=== PATIENT | male | born 1960 | race Caucasian/White ===

== ENCOUNTER 2019-02-09 19:10 | Emergency (ER) | payer MEDICARE, OTHER ==
[~2019-02-09] VITALS: Ht 185.4 cm; Wt 115.2 kg
[2019-02-09 19:54] LABS: BASO # 0.1 x10^3/uL (0.0-0.2); BASO % 1 % (0-3); EOS # 0.1 x10^3/uL (0.0-0.7); EOS % 2 % (0-3); HEMATOCRIT 44.2 % (39.0-53.0); HEMOGLOBIN 14.9 g/dL (13.0-17.5); LYMPH # 1.4 x10^3/uL (1.0-4.8); LYMPH % 17 % (24-48); MEAN CORPUSCULAR HEMOGLOBIN 30 pg (25-35); MEAN CORPUSCULAR HGB CONC 34 g/dL (31-37); MEAN CORPUSCULAR VOLUME 88 fL (79-100); MONO # 0.7 x10^3/uL (0.0-1.1); MONO % 9 % (0-9); NEUT # 5.9 x10^3uL (1.8-7.7); NEUT % 72 % (31-73); PLATELET COUNT 206 x10^3/uL (140-400); RED BLOOD COUNT 5.04 x10^6/uL (4.30-5.70); RED CELL DISTRIBUTION WIDTH 13.5 % (11.5-14.5); WHITE BLOOD COUNT 8.2 x10^3/uL (4.0-11.0)
[2019-02-09] MEDS ORDERED: IV NORMAL SALINE 1000ML BAG 1,000 ML IV ONE (20:00)
[2019-02-09 20:04] LABS: CALCIUM 9.3 mg/dL (8.5-10.1); CREATININE 2.3 mg/dL (0.7-1.3); GFR 29.2; POTASSIUM 4.2 mmol/L (3.5-5.1)
[2019-02-09 20:10] LABS: ALBUMIN/GLOBULIN RATIO 1.1 (1.0-1.7); MAGNESIUM 2.3 mg/dL (1.8-2.4); TOTAL BILIRUBIN 0.5 mg/dL (0.2-1.0); TOTAL PROTEIN 7.6 g/dL (6.4-8.2)
--- NOTE | 2019-02-09 20:26 | PHYS DOC ---
Past Medical History Past Medical History: COPD, Depression, Glaucoma, High Cholesterol, Hypertension, Renal Disease, Other Additional Past Medical Histor: CHRONIC PAIN Past Surgical History: Appendectomy, Lumbar Laminectomy, Other Additional Past Surgical Histo: R SHOULDER, NECK PLATE, "EYE TUBES", HERNIA Smoking: Quit Greater Than 1 Year Alcohol Use: Rarely Drug Use: Methadone Adult General Chief Complaint Chief Complaint: DIZZY/LIGHT HEADED HPI HPI 58-year-old male presents with report of dizziness/lightheadedness 2-3 days. Denies any loss of consciousness. Denies headache. Denies fever or chills. Denies known trauma. Denies chest pain. Patient does report some neck pain. Patient does report prior history of neck issues secondary to injury occurred in a rack. Reports had surgery regarding. Reports this just started to act up again. Denies other complaints at this time. Review of Systems Review of Systems Constitutional: Denies fever or chills Eyes: Denies redness or eye pain HENT: Denies nasal congestion or sore throat Respiratory: Denies cough or shortness of breath Cardiovascular: Denies chest pain or palpitations GI: Denies abdominal pain, nausea, or vomiting : Denies dysuria or hematuria Musculoskeletal: Denies back pain or joint pain; reports acute on chronic neck pain Integument: Denies rash or skin lesions Neurologic: Denies headache, focal weakness or sensory changes; reports dizziness/lightheadedness Complete systems were reviewed and found to be within normal limits, except as documented in this note. Current Medications Current Medications Current Medications Medications (Trade) Dose Ordered Sig/Maxime Start Time Stop Time Status Last Admin Dose Admin Sodium Chloride 1,000 ml @ 1,000 mls/hr 1X ONCE 02/09/19 20:00 02/09/19 20:59 DC 02/09/19 20:35 1,000 MLS/HR Allergies Allergies Allergies Coded Allergies Type Severity Reaction Last Updated Verified Penicillins Allergy Mild ITCHING 02/09/19 Yes Physical Exam Physical Exam Constitutional: Well developed, well nourished, no acute distress, non-toxic appearance HENT: Normocephalic, atraumatic, oropharynx moist Eyes: PERRL, EOMI, conjunctiva normal, no discharge Neck: Normal range of motion, bilateral mid cervical paraspinal tenderness, supple Cardiovascular: Heart rate normal, regular rhythm Lungs & Thorax: Bilateral breath sounds clear to auscultation, no wheezing Abdomen: Soft, no tenderness Skin: Warm, dry, no erythema, no rash Extremities: No tenderness, ROM intact, no edema Neurologic: Alert and oriented X 3, normal motor function, normal sensory function, no focal deficits noted Psychologic: Affect normal, judgement normal, mood normal Current Patient Data Vital Signs Lab Values Laboratory Tests Test 02/09/19 19:32 02/09/19 20:28 White Blood Count 8.2 x10^3/uL (4.0-11.0) Red Blood Count 5.04 x10^6/uL (4.30-5.70) Hemoglobin 14.9 g/dL (13.0-17.5) Hematocrit 44.2 % (39.0-53.0) Mean Corpuscular Volume 88 fL (79-100) Mean Corpuscular Hemoglobin 30 pg (25-35) Mean Corpuscular Hemoglobin Concent 34 g/dL (31-37) Red Cell Distribution Width 13.5 % (11.5-14.5) Platelet Count 206 x10^3/uL (140-400) Neutrophils (%) (Auto) 72 % (31-73) Lymphocytes (%) (Auto) 17 % (24-48) L Monocytes (%) (Auto) 9 % (0-9) Eosinophils (%) (Auto) 2 % (0-3) Basophils (%) (Auto) 1 % (0-3) Neutrophils # (Auto) 5.9 x10^3uL (1.8-7.7) Lymphocytes # (Auto) 1.4 x10^3/uL (1.0-4.8) Monocytes # (Auto) 0.7 x10^3/uL (0.0-1.1) Eosinophils # (Auto) 0.1 x10^3/uL (0.0-0.7) Basophils # (Auto) 0.1 x10^3/uL (0.0-0.2) Sodium Level 141 mmol/L (136-145) Potassium Level 4.2 mmol/L (3.5-5.1) Chloride Level 103 mmol/L (98-107) Carbon Dioxide Level 27 mmol/L (21-32) Anion Gap 11 (6-14) Blood Urea Nitrogen 29 mg/dL (8-26) H Creatinine 2.3 mg/dL (0.7-1.3) H Estimated GFR (Cockcroft-Gault) 29.2 BUN/Creatinine Ratio 13 (6-20) Glucose Level 100 mg/dL (70-99) H Calcium Level 9.3 mg/dL (8.5-10.1) Magnesium Level 2.3 mg/dL (1.8-2.4) Total Bilirubin 0.5 mg/dL (0.2-1.0) Aspartate Amino Transferase (AST) 25 U/L (15-37) Alanine Aminotransferase (ALT) 39 U/L (16-63) Alkaline Phosphatase 90 U/L (46-116) Creatine Kinase 264 U/L (39-308) Creatine Kinase MB (Mass) 2.6 ng/mL (0.0-3.6) Creatine Kinase MB Relative Index 1.0 % (0-4) Troponin I Quantitative < 0.017 ng/mL (0.000-0.055) Total Protein 7.6 g/dL (6.4-8.2) Albumin 4.0 g/dL (3.4-5.0) Albumin/Globulin Ratio 1.1 (1.0-1.7) Urine Collection Type Void Urine Color Ethel Urine Clarity Clear Urine pH 5.5 Urine Specific [place] 1.025 Urine Protein 100 mg/dL (NEG-TRACE) Urine Glucose (UA) Negative mg/dL (NEG) Urine Ketones (Stick) Trace mg/dL (NEG) Urine Blood Negative (NEG) Urine Nitrite Negative (NEG) Urine Bilirubin Small (NEG) Urine Urobilinogen Dipstick 1.0 mg/dL (0.2 mg/dL) Urine Leukocyte Esterase Negative (NEG) Urine RBC Occ /HPF (0-2) Urine WBC 1-4 /HPF (0-4) Urine Squamous Epithelial Cells Few /LPF Urine Bacteria 0 /HPF (0-FEW) Urine Hyaline Casts Moderate /HPF Urine Mucus Mod /LPF Laboratory Tests 02/09/19 19:32 Laboratory Tests 02/09/19 19:32 EKG EKG @2016 NSR at 56bpm, NO ST elevation Radiology/Procedures Radiology/Procedures PROCEDURE: CT HEAD WO CONTRAST EXAM: CT Head without IV contrast CLINICAL HISTORY: near syncope COMPARISON: None. TECHNIQUE: Routine CT of the head without contrast. Soft tissues and bone windows were reviewed. PQRS compliance statement - One or more of the following individualized dose reduction techniques were utilized for this study: 1. Automated exposure control 2. Adjustment of the mA and/or kV according to patient size 3. Use of iterative reconstruction technique FINDINGS: There is no evidence of hemorrhage, mass or extra-axial fluid collection. Levin-white differentiation is maintained with no evidence of edema. There is no mass effect or shift of the intracranial structures. The ventricles, basilar cisterns and cortical sulci are normal in size and configuration for the patients stated age. The cerebellum and brainstem are unremarkable. The calvarium demonstrates no evidence of fracture or focal lesion. There is normal aeration of the visualized paranasal sinuses and mastoid air cells. The visualized portions of the orbits are normal. IMPRESSION: 1. No evidence for acute intracranial process. Electronically signed by: Ilya Malhotra MD (02/09/2019 8:50 PM) [facility] CXR (2 view) preliminary interpretation by ED physician: No acute process Course & Med Decision Making Course & Med Decision Making Pertinent Labs and Imaging studies reviewed. (See chart for details) Patient presents with dizziness/lightheadedness 2-3 days. Denies room spinning sensation. Denies chest pain. Patient neurologically intact. EKG stable. Labs obtained and posted to chart. Troponin within normal limits. Creatnine 2.3. No comparitive lab data in [facility]. Patient does report history of chronic renal insufficiency. IV fluid hydration provided. Patient stable for discharge with outpatient follow-up with PCP. Discussed findings and plan with patient, who acknowledges understanding and agreement. Dragon Disclaimer Dragon Disclaimer This electronic medical record was generated, in whole or in part, using a voice recognition dictation system. Departure Departure Impression: Primary Impression: Near syncope Additional Impression: Renal insufficiency Disposition: HOME, SELF-CARE Condition: IMPROVED Referrals: UNKNOWN PCP NAME (PCP) Patient Instructions: Chronic Renal Insufficiency, Dehydration, Adult, [id number], Near-Syncope, [id number]-[id number] NIHSS - ED NIH Stroke Scale: NIH Stroke Scale Response (Comments) Value Level of Consciousness: 0 Alert/Responsive 0 LOC Questions: 0 Answers both correctly 0 LOC Commands: 0 Performs both tasks 0 Best Gaze: 0 Normal 0 Visual: 0 No visual loss 0 Facial Palsy: 0 Normal, symmetrical 0 Motor - Left Arm 0 No drift 0 Motor - Right Arm 0 No drift 0 Motor - Left Leg 0 No drift 0 Motor: Right Leg 0 No drift 0 Limb Ataxia: 0 Absent 0 Sensory: 0 No loss 0 Best Language: 0 Normal 0 Dysathria: 0 Normal 0 Extinction and Inattention: 0 Normal 0 Total 0 Problem Qualifiers LONDON NOGUEIRA DO Feb 09, 2019 20:26
[2019-02-09 20:43] LABS: BILIRUBIN,URINE SMALL (NEG); CLARITY,URINE CLEAR; COLOR,URINE AMBER; NITRITE,URINE NEGATIVE (NEG); PH,URINE 5.5; PROTEIN,URINE 100 mg/dL (NEG-TRACE)
--- NOTE | 2019-02-09 20:53 | RAD ---
EXAM: CT Head without IV contrast CLINICAL HISTORY: near syncope COMPARISON: None. TECHNIQUE: Routine CT of the head without contrast. Soft tissues and bone windows were reviewed. PQRS compliance statement - One or more of the following individualized dose reduction techniques were utilized for this study: 1. Automated exposure control 2. Adjustment of the mA and/or kV according to patient size 3. Use of iterative reconstruction technique FINDINGS: There is no evidence of hemorrhage, mass or extra-axial fluid collection. Levin-white differentiation is maintained with no evidence of edema. There is no mass effect or shift of the intracranial structures. The ventricles, basilar cisterns and cortical sulci are normal in size and configuration for the patients stated age. The cerebellum and brainstem are unremarkable. The calvarium demonstrates no evidence of fracture or focal lesion. There is normal aeration of the visualized paranasal sinuses and mastoid air cells. The visualized portions of the orbits are normal. IMPRESSION: 1. No evidence for acute intracranial process. Electronically signed by: Ilya Malhotra MD (02/09/2019 8:50 PM) [facility]
[2019-02-09 21:10] VITALS: BP 133/61
[2019-02-09 21:21] LABS: BACTERIA,URINE 0 /HPF (0-FEW); HYALINE CASTS, URINE MODERATE /HPF; RBC,URINE OCC /HPF (0-2); SQUAMOUS EPITHELIAL CELL,UR FEW /LPF
--- NOTE | 2019-02-10 00:25 | RAD ---
EXAM: PA and Lateral Views of the Chest DATE: 02/09/2019 8:00 PM INDICATION: NEAR SYNCOPE, HYPOTENSION. Hx HTN. NO PRIORS COMPARISON: No Prior FINDINGS: The heart is not enlarged. Mediastinal and hilar contours are normal. No focal parenchymal airspace opacity. No pleural effusion or pneumothorax. IMPRESSION: 1. No radiographic evidence for acute cardiopulmonary process. Electronically signed by: Ilya Malhotra MD (02/10/2019 12:22 AM) [facility]
--- NOTE | 2019-02-10 05:49 | EKG ---
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
== END 2019-02-09 21:44 | disposition home or self-care (01) ==
LOC: ER 19:10
DX: R55 Syncope and collapse (principal); N28.9 Disorder of kidney and ureter, unspecified; E78.00 Pure hypercholesterolemia, unspecified; J44.9 Chronic obstructive pulmonary disease, unspecified; I10 Essential (primary) hypertension; G89.29 Other chronic pain; F32.9 Major depressive disorder, single episode, unspecified; Z90.89 Acquired absence of other organs; Z88.0 Allergy status to penicillin
CPT/HCPCS: 36415; 70450; 71046; 80053; 81001; 82553; 83735; 84484; 85025; 93005; 96360; 99284; J7030

== ENCOUNTER → 2019-11-07 | Outpatient (CLI) | payer MEDICARE, OTHER ==
--- NOTE | 2019-11-07 14:52 | RAD ---
INDICATION: Nonhealing ulcer with concern for reflux. COMPARISON: None. FINDINGS: Focused ultrasound images are obtained through the bilateral saphenous system including grayscale, color and spectral Doppler. Right: There is approximately 1.5 seconds of reflux at the right saphenofemoral junction region. Greater saphenous vein measures 5 mm proximally. Mid greater saphenous vein is 4 mm. Distal is 3.6 mm. At the calf it is 5 mm. Distal calf 3.6 mm. The right calf perforators do not have significant reflux. 26 back measuring 3.8 mm. Additional recruiter manager 15 up to 5 back measuring 4 mm. There is a superficial varicose vein in the right calf with vascular flow. Reflux is seen within the right proximal posterior calf at the lesser saphenous vein. Lesser saphenous vein measures 7.2 mm proximally with 2.2 seconds of reflux, 4.0 mm at midportion. Left: Saphenofemoral junction is 6 mm. No significant reflux. Greater saphenous vein is 5.8 mm proximally, 4.0 at mid femur and 3.1 mm distal femur. At the proximal calf it measures 2.5 mm. Mid calf 2.3 mm. Distal calf 2.5 mm. Lesser saphenous vein is 3.0 mm proximally, 1.9 mm at midportion. IMPRESSION: * Reflux is identified within the right lesser saphenous vein as well as the right saphenofemoral junction. Vessel measurements and reflux time as above. Electronically signed by: Ash Mcintosh MD (11/07/2019 2:49 PM) [facility]
== END | disposition home or self-care (01) ==
LOC: US 12:18
PROVIDERS: ATTEND Preventive Medicine Undersea and Hyperbaric Medicine
DX: L97.318 Non-pressure chronic ulcer of right ankle with other specified severity (principal); I83.91 Asymptomatic varicose veins of right lower extremity
CPT/HCPCS: 93970

== ENCOUNTER 2019-11-28 11:23 | Emergency (ER) | payer MEDICARE, OTHER ==
[2019-11-28 11:32] VITALS: BP 192/98
--- NOTE | 2019-11-28 11:58 | PHYS DOC ---
Past Medical History Past Medical History: COPD, Depression, Glaucoma, High Cholesterol, Hypertension, Renal Disease, Other Additional Past Medical Histor: CHRONIC PAIN Past Surgical History: Appendectomy, Lumbar Laminectomy, Other Additional Past Surgical Histo: R SHOULDER, NECK PLATE, "EYE TUBES", HERNIA Alcohol Use: Rarely Drug Use: Methadone Adult General Chief Complaint Chief Complaint: DIZZY/LIGHT HEADED HPI HPI Patient is a 59 year old m withdizzy and shortness of breath whenhe stands up gets dizzy has hot flashes with standing up as well. no chest pain. sob intermittent comes and goes when it lasts it can last all day does have it when lying down, occasionally short of breath with exertion. feels weak all over "like im running out of gas>" lightheaded with walking. primary doctor at the [facility] htn, reports ef 45% backin 2014. never had cardiac catheterization meds cholesterolmedication took medicines in october for influenza confirmed and pneumonia as well. no fever. Review of Systems Review of Systems Constitutional: Cardiovascular: No additional information not addressed in HPI [] Musculoskeletal: Denies back pain or joint pain [] Integument: Denies rash or skin lesions [] Neurologic: Denies headache, focal weakness or sensory changes [] Endocrine: Denies polyuria or polydipsia [] All other systems were reviewed and found to be within normal limits, except as documented in this note. Current Medications Current Medications Current Medications Medications (Trade) Dose Ordered Sig/Maxime Start Time Stop Time Status Last Admin Dose Admin Info (CONTRAST GIVEN -- Rx MONITORING) 1 each PRN DAILY PRN 11/28/19 13:00 11/30/19 12:59 Iohexol (Omnipaque 350 Mg/ml) 80 ml 1X ONCE 11/28/19 13:15 11/28/19 13:16 DC 11/28/19 12:59 80 ML Lorazepam (Ativan Inj) 1 mg 1X ONCE 11/28/19 14:00 11/28/19 14:01 DC 11/28/19 13:58 1 MG Meclizine HCl (Antivert) 25 mg 1X ONCE 11/28/19 14:00 11/28/19 14:01 DC 11/28/19 13:57 25 MG Sodium Chloride 1,000 ml @ 1,000 mls/hr 1X ONCE 11/28/19 14:00 11/28/19 14:59 DC 11/28/19 13:57 1,000 MLS/HR Allergies Allergies Allergies Coded Allergies Type Severity Reaction Last Updated Verified Penicillins Allergy Intermediate ITCHING 11/28/19 Yes Physical Exam Physical Exam Constitutional: Well developed, well nourished, no acute distress, non-toxic appearance. [] HENT: Normocephalic, atraumatic, bilateral external ears normal, oropharynx moist, no oral exudates, nose normal. [] Eyes: PERRLA, EOMI, conjunctiva normal, no discharge. [] Neck: Normal range of motion, no tenderness, supple, no stridor. [] Cardiovascular:Heart rate regular rhythm, no murmur [] Lungs & Thorax: Bilateral breath sounds clear to auscultation [] Abdomen: Bowel sounds normal, soft, no tenderness, no masses, no pulsatile masses. [] Skin: Warm, dry, no erythema, no rash. [] Back: No tenderness, no CVA tenderness. [] Extremities: No tenderness, no cyanosis, no clubbing, ROM intact, no edema. [] Neurologic: Alert and oriented X 3, normal motor function, normal sensory function, no focal deficits noted. [] Psychologic: Significant anxiety noted this improved after I gave Ativan Current Patient Data Vital Signs Vital Signs Date Time Temp Pulse Resp B/P (MAP) Pulse Ox O2 Delivery O2 Flow Rate FiO2 11/28/19 11:32 98.3 90 18 192/98 (129) 97 Room Air 98.3 Lab Values Laboratory Tests Test 11/28/19 11:46 11/28/19 13:38 White Blood Count 7.0 x10^3/uL (4.0-11.0) Red Blood Count 5.38 x10^6/uL (4.30-5.70) Hemoglobin 15.4 g/dL (13.0-17.5) Hematocrit 45.8 % (39.0-53.0) Mean Corpuscular Volume 85 fL (79-100) Mean Corpuscular Hemoglobin 29 pg (25-35) Mean Corpuscular Hemoglobin Concent 34 g/dL (31-37) Red Cell Distribution Width 13.8 % (11.5-14.5) Platelet Count 295 x10^3/uL (140-400) Neutrophils (%) (Auto) 72 % (31-73) Lymphocytes (%) (Auto) 18 % (24-48) L Monocytes (%) (Auto) 7 % (0-9) Eosinophils (%) (Auto) 2 % (0-3) Basophils (%) (Auto) 1 % (0-3) Neutrophils # (Auto) 5.0 x10^3/uL (1.8-7.7) Lymphocytes # (Auto) 1.3 x10^3/uL (1.0-4.8) Monocytes # (Auto) 0.5 x10^3/uL (0.0-1.1) Eosinophils # (Auto) 0.1 x10^3/uL (0.0-0.7) Basophils # (Auto) 0.0 x10^3/uL (0.0-0.2) D-Dimer (Maria Elena) 1.11 ug/mlFEU (0.00-0.50) H Sodium Level 140 mmol/L (136-145) Potassium Level 3.8 mmol/L (3.5-5.1) Chloride Level 101 mmol/L (98-107) Carbon Dioxide Level 27 mmol/L (21-32) Anion Gap 12 (6-14) Blood Urea Nitrogen 23 mg/dL (8-26) Creatinine 1.3 mg/dL (0.7-1.3) Estimated GFR (Cockcroft-Gault) 56.1 BUN/Creatinine Ratio 18 (6-20) Glucose Level 126 mg/dL (70-99) H Calcium Level 9.4 mg/dL (8.5-10.1) Total Bilirubin 0.4 mg/dL (0.2-1.0) Aspartate Amino Transferase (AST) 21 U/L (15-37) Alanine Aminotransferase (ALT) 41 U/L (16-63) Alkaline Phosphatase 102 U/L (46-116) Troponin I Quantitative < 0.017 ng/mL (0.000-0.055) IX-Jgz-M-Type Natriuretic Peptide 62 pg/mL (0-124) Total Protein 7.7 g/dL (6.4-8.2) Albumin 4.0 g/dL (3.4-5.0) Albumin/Globulin Ratio 1.1 (1.0-1.7) Urine Collection Type Unknown Urine Color Yellow Urine Clarity Clear Urine pH 6.0 Urine Specific [place] >=1.030 Urine Protein Negative mg/dL (NEG-TRACE) Urine Glucose (UA) Negative mg/dL (NEG) Urine Ketones (Stick) Negative mg/dL (NEG) Urine Blood Negative (NEG) Urine Nitrite Negative (NEG) Urine Bilirubin Negative (NEG) Urine Urobilinogen Dipstick 0.2 mg/dL (0.2 mg/dL) Urine Leukocyte Esterase Negative (NEG) Urine RBC 0 /HPF (0-2) Urine WBC 0 /HPF (0-4) Urine Bacteria 0 /HPF (0-FEW) Urine Mucus Slight /LPF Laboratory Tests 11/28/19 11:46 Laboratory Tests 11/28/19 11:46 EKG EKG []nsr rate 73 no stemi no ischemic changes. Radiology/Procedures Radiology/Procedures [] Impressions: IMPRESSION: 1. No evidence of pulmonary embolism. 2. Minimal atelectasis bibasilar lungs and left lingula. Electronically signed by: Pierre Frankel MD (11/28/2019 1:16 PM) [id number] Course & Med Decision Making Course & Med Decision Making Pertinent Labs and Imaging studies reviewed. (See chart for details) []This is a 59-year-old male [facility] patient history of hypertension presenting with dizziness and lightheadedness [id number] was intact on examination patient felt better in the emergency room after meclizine and Ativan extensive workup was initiated due to complaint shortness of breath primarily that was negative no signs of CHF PE or acute coronary syndrome discharge in stable condition likely anxiety Dragon Disclaimer Dragon Disclaimer This electronic medical record was generated, in whole or in part, using a voice recognition dictation system. Departure Departure Impression: Primary Impression: Shortness of breath Disposition: 01 HOME, SELF-CARE Condition: STABLE Referrals: LYLE HULL MD (PCP) Scripts Meclizine Hcl (MECLIZINE HCL) 25 Mg Tablet 1 TAB PO PRN TID for vertigo, #30 TAB Prov: AMAURI MAKI MD 11/28/19 AMAURI MAKI MD Nov 28, 2019 11:58
[2019-11-28 12:07] LABS: BASO % 1 % (0-3); EOS # 0.1 x10^3/uL (0.0-0.7); EOS % 2 % (0-3); HEMATOCRIT 45.8 % (39.0-53.0); HEMOGLOBIN 15.4 g/dL (13.0-17.5); LYMPH # 1.3 x10^3/uL (1.0-4.8); LYMPH % 18 % (24-48); MEAN CORPUSCULAR HEMOGLOBIN 29 pg (25-35); MEAN CORPUSCULAR HGB CONC 34 g/dL (31-37); MEAN CORPUSCULAR VOLUME 85 fL (79-100); MONO # 0.5 x10^3/uL (0.0-1.1); MONO % 7 % (0-9); NEUT % 72 % (31-73); PLATELET COUNT 295 x10^3/uL (140-400); RED BLOOD COUNT 5.38 x10^6/uL (4.30-5.70); RED CELL DISTRIBUTION WIDTH 13.8 % (11.5-14.5)
--- NOTE | 2019-11-28 12:11 | EKG ---
[facility] [address] [place] [address] Test Date: 2019-11-28 Test Time: 11:49:18 Pat Name: STEFF GREENBERG Department: Room: Gender: M [employer] Magistrate: : 1960 Requested By: AMAURI MAKI Order Number: [id number] Reading MD: Measurements Intervals [place] Rate: 73 P: 26 [place]: 200 QRS: 8 QRSD: 82 T: 49 QT: 362 QTc: 402 Interpretive Statements SINUS RHYTHM NORMAL ECG RI6.01 No previous ECG available for comparison
[2019-11-28 12:19] LABS: CALCIUM 9.4 mg/dL (8.5-10.1); CREATININE 1.3 mg/dL (0.7-1.3); GFR 56.1; POTASSIUM 3.8 mmol/L (3.5-5.1)
--- NOTE | 2019-11-28 12:21 | RAD ---
Single AP view of the chest. Comparison: 02/01/2019. Indication: Shortness of breath with dizziness lightheadedness cardiac issues Findings: There is partially identified cervical fusion hardware. The heart is at the upper limits of normal but stable. There is no pneumothorax or effusion. No air space or interstitial disease. Impression: 1. No acute cardiopulmonary process. Electronically signed by: Minor Rodriguez MD (11/28/2019 12:18 PM) [facility]
[2019-11-28 12:26] LABS: ALBUMIN/GLOBULIN RATIO 1.1 (1.0-1.7); TOTAL BILIRUBIN 0.4 mg/dL (0.2-1.0); TOTAL PROTEIN 7.7 g/dL (6.4-8.2)
[2019-11-28] MEDS ORDERED: CONTRAST GIVEN. MC PRN (13:00)
[2019-11-28] MEDS ORDERED: IOHEXOL 350 MG/ML 100 ML VIAL. IV ONE (13:15)
--- NOTE | 2019-11-28 13:19 | RAD ---
Examination: CT angiography chest HISTORY: History of elevated d-dimer, shortness of breath COMPARISON: None available TECHNIQUE: Axial CT and radiographic images of chest were performed with IV contrast. Coronal and sagittal 3-D MIP reformats are performed. Exposure: One or more of the following individualized dose reduction techniques were utilized for this examination: 1. Automated exposure control 2. Adjustment of the mA and/or kV according to patient size 3. Use of iterative reconstruction technique FINDINGS: The visualized thyroid gland grossly appears unremarkable. The central airways are patent. The caliber of the aorta grossly appears unremarkable. There is no evidence of filling defect identified in the main pulmonary arterial trunk and right and left main pulmonary arteries and the visualized lobar, segmental branches of the pulmonary arteries. Mild atelectasis identified in the bibasilar lungs in the left lingula. The visualized liver, spleen, adrenals grossly appears unremarkable. Moderate degenerative changes thoracic spine. IMPRESSION: 1. No evidence of pulmonary embolism. 2. Minimal atelectasis bibasilar lungs and left lingula. Electronically signed by: Pierre Frankel MD (11/28/2019 1:16 PM) [id number]
[2019-11-28 13:50] LABS: BILIRUBIN,URINE NEGATIVE (NEG); CLARITY,URINE CLEAR; COLOR,URINE YELLOW; NITRITE,URINE NEGATIVE (NEG); PROTEIN,URINE NEGATIVE (NEG-TRACE); UROBILINOGEN,URINE 0.2 mg/dL (0.2 mg/dL)
[2019-11-28 13:55] LABS: BACTERIA,URINE 0 /HPF (0-FEW); RBC,URINE 0 /HPF (0-2); WBC,URINE 0 /HPF (0-4)
[2019-11-28] MEDS ORDERED: MECL-75 PO (13:59)
[2019-11-28] MEDS ORDERED: IV NORMAL SALINE 1000ML BAG 1,000 ML IV ONE (14:00)
[2019-11-28] MEDS ORDERED: MECLIZINE HCL 12.5 MG TABLET. PO ONE (14:00)
== END 2019-11-28 14:42 | disposition home or self-care (01) ==
LOC: ER 11:23
DX: R06.02 Shortness of breath (principal); R42 Dizziness and giddiness; J44.9 Chronic obstructive pulmonary disease, unspecified; E78.00 Pure hypercholesterolemia, unspecified; I10 Essential (primary) hypertension; G89.29 Other chronic pain; Z88.0 Allergy status to penicillin
CPT/HCPCS: 36415; 71045; 71275; 80053; 81001; 83880; 84484; 85025; 85379; 93005; 96361; 96374; 99285; J2060; J7030; J8597; Q9967

== ENCOUNTER → 2019-12-11 | Outpatient (CLI) | payer MEDICARE, OTHER ==
[2019-11-28 11:32] VITALS: BP 192/98
[~2019-12-11] MED LIST: MECL-75 PO
--- NOTE | 2019-12-11 15:14 | CARD ---
MR#: [id number] Date of Study: 12/11/2019 Ordering Physician: EMMY BIGGS, Referring Physician: EMMY BIGGS, Tech: Susana Louie [facility] APPROVED REPORT EXAM: Two-dimensional and M-mode echocardiogram with Doppler and color Doppler. Other Information Quality : AdequateHR: 74bpm Rhythm : NSR INDICATION HTN 2D DIMENSIONS RVDd2.3 (2.9-3.5cm)IVSd1.2 (0.7-1.1cm) Aortic Root(2D)3.7 (2.0-3.7cm)LVDd4.5 (3.9-5.9cm) LVOT Diameter2.3 (1.8-2.4cm)PWd1.2 (0.7-1.1cm) LVDs3.1 (2.5-4.0cm)FS (%) 30.5 % SV53.2 mlLVEF(%)58.1 (>50%) Aortic Valve AoV Peak Dayne.126.6cm/Gui Peak GR.6.4mmHg LVOT Peak Dayne.104.9cm/sAVA (VMAX)3.48cm2 Mitral Valve MV E Nlzmlkmw07.0cm/sMV DECEL [id number] MV A Rzejxthq69.1cm/sE/A Ratio0.7 MV A [id number] Pulmonary Valve PV Peak Jwhytsvo68.3cm/s Pulmonary Vein S1 Kgheeuox03.2cm/sD2 Jhhjcrjo25.6cm/s PVa [id number] LEFT VENTRICLE The left ventricle is normal size. Borderline left vetricular hypertrophy. The left ventricular systo lic function is normal and the ejection fraction is within normal range. The Ejection Fraction is 55- 60%. There is normal LV segmental wall motion. Transmitral Doppler flow pattern is Grade I-abnormal r elaxation pattern. RIGHT VENTRICLE The right ventricle is normal size. The right ventricular systolic function is normal. ATRIA The left atrium size is normal. The right atrium size is normal. The interatrial septum is intact wit h no evidence for an atrial septal defect or patent foramen ovale as noted on 2-D or Doppler imaging. AORTIC VALVE The aortic valve is normal in structure and function. Doppler and Color Flow revealed no significant aortic regurgitation. There is no significant aortic valvular stenosis. MITRAL VALVE The mitral valve is normal in structure and function. There is no mitral valve stenosis. Doppler and Color Flow revealed no mitral valve regurgitation noted. TRICUSPID VALVE The tricuspid valve is normal in structure and function. Doppler and Color Flow revealed no tricuspid valve regurgitation noted. Unable to assess PA pressure. There is no tricuspid valve stenosis. PULMONIC VALVE The pulmonary valve is normal in structure and function. Doppler and Color Flow revealed trace pulmon ic valvular regurgitation. There is no pulmonic valvular stenosis. GREAT VESSELS The aortic root is normal in size. The ascending aorta is normal in size. The IVC is normal in size a nd collapses >50% with inspiration. PERICARDIAL EFFUSION There is no evidence of significant pericardial effusion. Critical Notification Critical Value: No <Conclusion> The left ventricular systolic function is normal and the ejection fraction is within normal range. Th e Ejection Fraction is 55-60%. There is normal LV segmental wall motion. Signed by : Emmy Biggs, Electronically Approved : 12/11/2019 15:13:37
== END | disposition home or self-care (01) ==
LOC: ECHO 12:40
PROVIDERS: ATTEND Internal Medicine Cardiovascular Disease
DX: I11.9 Hypertensive heart disease without heart failure (principal)
CPT/HCPCS: 93306

== ENCOUNTER → 2019-12-26 | Outpatient (CLI) | payer MEDICARE, OTHER ==
[2019-11-28 11:32] VITALS: BP 192/98
--- NOTE | 2019-12-27 13:21 | CARD ---
MR#: [id number] Date of Study: 12/26/2019 Ordering Physician: AQUILES BRUNNER, Referring Physician: AQUILES BRUNNER, Tech: Twyla Villatoro RVT; Shlomo LAMBERT APPROVED REPORT Patient StatusOUT-PATIENT Entry Level Java Developer: Twyla Villatoro RVT; Shlomo LAMBERT Procedure(s) performed: Endovenous Vena Seal ablation of the Right lesser saphenous vein INDICATION FOR PROCEDURE The indication(s) include : Symptomatic Chronic Venous Insufficiency with Varicose Veins, lower extre mity pain and edema and non healing wound.. PROCEDURE NARRATIVE After explaining the risks, benefits and alternative options, informed consent was obtained from gerber ent. Patient was brought to the procedure suite and duplex ultrasound was used to map out the insuffi cient saphenous vein. The access site was determined and marked on the overlying skin. The depth and diameter of the vein (s) to be treated was documented. The patient was placed prone on the procedure table and the leg was prepped and draped using sterile technique. Ultrasound guidance was again used to localize the access site. 1% lidocaine was injected into the sk in and subcutaneous tissues for local anesthesia. Using ultrasound guidance, access was obtained in t he saphenous vein with a 19-gauge thin-walled needle followed by introduction of a short guidewire. T he intraluminal location was confirmed with ultrasound and a 7 [place]an 7 cm sheath was inserted into t he vein. A 0.035 inch guidewire from the Venaseal kit was then introduced and positioned at the saphe nopopliteal junction using ultrasound guidance. The 80 cm 7 [place]an introducer sheath/dilator was posi tioned 5 cm from the saphenopopliteal junction. The guidewire and dilator were removed and the remain ing sheath was flushed with sterile saline, with the syringe remaining in place prior to the next radha ps. The Cyanoacrylate adhesive was loaded into a 3 cc syringe that was then attached to the 5F delivery c athter and loaded on to the Dispenser gun.The catheter was primed precisely and this 'assembly' was i ntroduced through the 7 [place]an sheath and positioned 5 cm caudal to the saphenopopliteal junction und er ultrasound guidance. While applying compression cephalad to the cathter tip with the ultrasound tr ansducer, 0.10 cc of the VenaSeal adhesive was delivered into the vein by pulling the trigger of the dispenser gun. The catheter was pulled back 1 cm and another 0.10 cc of the adhesive was delivered fo llowing which the catheter was pulled back 3 cm. Compression was applied over the vein for 3 minutes. The catheter tip position was confirmed again using the ultrasound, 0.10 cc Venaseal adhesive delive red, catheter pulled back 3 cm and compression applied for 30 seconds. These steps were repeated to treat the entire length of the incompetent vein. Following the last injection and compression sequence, the catheter and introducer sheath were pulled out from the access site. Hemostasis was achieved with manual compression and an adhesive bandage wa s applied to the incision. Ultrasound confirmed complete coaptation and closure of the treated segmen ts of the greater saphenous vein, and the absence of any DVT at the saphenopopliteal junction. Treatm ent length was 30 cm. The drapes were removed and the patient cleaned and prepared for discharge. Patient tolerated the pro cedure well. There were no immediate complications. Postop ultrasound check scheduled for 48-72 hours and the patient was given written postop instructions. Signed by : Aquiles Brunner, Electronically Approved : 12/26/2019 13:28:43
== END ==
LOC: VNUS 12:25
PROVIDERS: ATTEND Internal Medicine Cardiovascular Disease
DX: I83.811 Varicose veins of right lower extremity with pain (principal)
CPT/HCPCS: 36482

== ENCOUNTER → 2020-03-01 | Outpatient (CLI) | payer MEDICARE, OTHER ==
[2020-03-01 12:17] LABS: BASO % 1 % (0-3); EOS # 0.2 x10^3/uL (0.0-0.7); EOS % 3 % (0-3); HEMATOCRIT 43.8 % (39.0-53.0); HEMOGLOBIN 14.5 g/dL (13.0-17.5); LYMPH # 1.3 x10^3/uL (1.0-4.8); LYMPH % 21 % (24-48); MEAN CORPUSCULAR HEMOGLOBIN 30 pg (25-35); MEAN CORPUSCULAR HGB CONC 33 g/dL (31-37); MEAN CORPUSCULAR VOLUME 90 fL (79-100); MONO # 0.6 x10^3/uL (0.0-1.1); MONO % 9 % (0-9); NEUT % 66 % (31-73); PLATELET COUNT 255 x10^3/uL (140-400); RED BLOOD COUNT 4.85 x10^6/uL (4.30-5.70); RED CELL DISTRIBUTION WIDTH 14.1 % (11.5-14.5); WHITE BLOOD COUNT 6.1 x10^3/uL (4.0-11.0)
[2020-03-01 12:18] LABS: BARBITURATES NEG (NEG); BENZODIAZEPINES NEG (NEG); CANNABINOIDS NEG (NEG); COCAINE NEG (NEG); METHADONE POS (NEG); OPIATES NEG (NEG); PHENCYCLIDINE NEG (NEG)
[2020-03-01 12:19] LABS: AMPHETAMINE/METHAMPHETAMINE NEG (NEG)
[2020-03-01 12:30] LABS: ALBUMIN 4.1 g/dL (3.4-5.0); ALBUMIN/GLOBULIN RATIO 1.1 (1.0-1.7); CREATININE 1.6 mg/dL (0.7-1.3); GFR 44.2; POTASSIUM 4.6 mmol/L (3.5-5.1); TOTAL BILIRUBIN 0.3 mg/dL (0.2-1.0); TOTAL PROTEIN 7.9 g/dL (6.4-8.2)
== END | disposition home or self-care (01) ==
LOC: LAB 11:42
PROVIDERS: ATTEND Psychiatry & Neurology Neurology
DX: R42 Dizziness and giddiness (principal); H53.8 Other visual disturbances; Z79.899 Other long term (current) drug therapy
CPT/HCPCS: 36415; 80053; 80307; 84443; 85025

== ENCOUNTER → 2020-03-13 | Outpatient (CLI) | payer MEDICARE, OTHER ==
--- NOTE | 2020-03-13 15:57 | RAD ---
Carotid doppler ultrasound History: Dizziness, blurred vision Multiple grayscale, color, and duplex spectral analysis waveform sonographic images were acquired of the carotid, subclavian, and vertebral arteries. Comparison: None Findings: RIGHT: PSV cm/sec EDV cm/sec Common carotid artery 114 16 Maximal internal carotid artery 90 35 Subclavian artery 178 External carotid artery 134 Vertebral artery 52 ICA/CCA ratio 0.79 LEFT: PSV cm/sec EDV cm/sec Common carotid artery 106 19 Maximum internal carotid artery 70 15 Subclavian artery 121 External carotid artery 138 Vertebral artery 50 ICA/CCA ratio 0.66 Velocities used to determine stenosis are known to correlate with NASCET angiographic criteria. There is antegrade flow in the bilateral vertebral arteries. No significant stenosis is demonstrated on grayscale or color images. There is mild plaque present. Impression: 1. There is no evidence of a hemodynamically significant stenosis. Electronically signed by: Jacob Flowers MD (03/13/2020 3:54 PM) [id number]
== END | disposition home or self-care (01) ==
LOC: US 14:59
PROVIDERS: ATTEND Psychiatry & Neurology Neurology
DX: I65.23 Occlusion and stenosis of bilateral carotid arteries (principal); R42 Dizziness and giddiness; H53.8 Other visual disturbances
CPT/HCPCS: 93880

== ENCOUNTER → 2020-06-03 | Outpatient (CLI) | payer MEDICARE, OTHER ==
[2020-06-04 19:09] LABS: ANA INTERP Negative (.)
== END | disposition home or self-care (01) ==
LOC: LAB 11:00
PROVIDERS: ATTEND Psychiatry & Neurology Neurology with Special Qualifications in Child Neurology
DX: G62.89 Other specified polyneuropathies (principal); R20.2 Paresthesia of skin; R20.0 Anesthesia of skin; R53.1 Weakness
CPT/HCPCS: 36415; 82607; 82746; 84165; 86038; 86140

== ENCOUNTER → 2021-03-17 | Outpatient (CLI) | payer MEDICARE, OTHER ==
[~2021-03-17] MED LIST changes: +AMLO-187 PO; +ASPI-630 PO; +B CO1TAB10 PO; +BRIN8DRO OP; +CHOL10004 PO; +CYAN500T7 PO; +DULO60CA6 PO; +FOLI0.8T5 PO; +HYDR25TA PO; +HYDR5TAB11 PO; +KETO120S4 TP; +LISI-130 PO; +LORA10TA3 PO; +MULT-690 PO; +OLOD4MIS2 IH; +PIME30CR2 TP; +POTA10TA12 PO; +PRAV40TA2 PO; +PREG150C PO; +TAMS0.4C97 PO; +TEST5GEL TD; +TIMO5DRO21 EACHEYE; +UBIQ75CA PO; +[UNRECOGNIZED DRUG - CODE] PO
== END ==
LOC: LAB 09:20
PROVIDERS: ATTEND Internal Medicine Cardiovascular Disease
DX: Z01.812 Encounter for preprocedural laboratory examination (principal); I20.0 Unstable angina; Z20.822 Contact with and (suspected) exposure to COVID-19
CPT/HCPCS: U0003; U0005

== ENCOUNTER 2021-03-20 08:28 | Outpatient (CLI) | payer MEDICARE, OTHER ==
[~2021-03-20] VITALS: Ht 185.4 cm; Wt 131.5 kg
[2021-03-20] VITALS (12 sets, daily range): BP systolic 96–183; BP diastolic 61–109
[~2021-03-20 08:28] MED LIST changes: -AMLO-187 PO; -ASPI-630 PO; -B CO1TAB10 PO; -BRIN8DRO OP; -CHOL10004 PO; -CYAN500T7 PO; -DULO60CA6 PO; -FOLI0.8T5 PO; -HYDR25TA PO; -HYDR5TAB11 PO; -KETO120S4 TP; -LISI-130 PO; -LORA10TA3 PO; -MULT-690 PO; -OLOD4MIS2 IH; -PIME30CR2 TP; -POTA10TA12 PO; -PRAV40TA2 PO; -PREG150C PO; -TAMS0.4C97 PO; -TEST5GEL TD; -TIMO5DRO21 EACHEYE; -UBIQ75CA PO; -[UNRECOGNIZED DRUG - CODE] PO
[2021-03-20 08:57] LABS: HEMATOCRIT 41.1 % (39.0-53.0); HEMOGLOBIN 13.9 g/dL (13.0-17.5); RED BLOOD COUNT 4.73 x10^6/uL (4.30-5.70); RED CELL DISTRIBUTION WIDTH 14.2 % (11.5-14.5); WHITE BLOOD COUNT 6.8 x10^3/uL (4.0-11.0)
[2021-03-20 09:04] LABS: CALCIUM 8.6 mg/dL (8.5-10.1); CREATININE 1.2 mg/dL (0.7-1.3); GFR 61.3; POTASSIUM 4.4 mmol/L (3.5-5.1)
[2021-03-20 09:08] LABS: PROTHROMBIN TIME PATIENT 12.6 SEC (11.7-14.0)
[2021-03-20] MEDS ORDERED: PIME30CR2 TP (09:31)
[2021-03-20] MEDS ORDERED: CYAN500T7 PO (09:31)
[2021-03-20] MEDS ORDERED: TAMS0.4C97 PO (09:31)
[2021-03-20] MEDS ORDERED: AMLO-187 PO (09:31)
[2021-03-20] MEDS ORDERED: UBIQ75CA PO (09:31)
[2021-03-20] MEDS ORDERED: TEST5GEL TD (09:31)
[2021-03-20] MEDS ORDERED: PRAV40TA2 PO (09:31)
[2021-03-20] MEDS ORDERED: KETO120S4 TP (09:31)
[2021-03-20] MEDS ORDERED: OLOD4MIS2 IH (09:31)
[2021-03-20] MEDS ORDERED: LORA10TA3 PO (09:31)
[2021-03-20] MEDS ORDERED: POTA10TA12 PO (09:31)
[2021-03-20] MEDS ORDERED: DULO60CA6 PO (09:31)
[2021-03-20] MEDS ORDERED: CHOL10004 PO (09:31)
[2021-03-20] MEDS ORDERED: BRIN8DRO OP (09:31)
[2021-03-20] MEDS ORDERED: FOLI0.8T5 PO (09:31)
[2021-03-20] MEDS ORDERED: LISI-130 PO (09:31)
[2021-03-20] MEDS ORDERED: B CO1TAB10 PO (09:31)
[2021-03-20] MEDS ORDERED: PREG150C PO (09:31)
[2021-03-20] MEDS ORDERED: ASPI-630 PO (09:31)
[2021-03-20] MEDS ORDERED: TIMO5DRO21 EACHEYE (09:31)
[2021-03-20] MEDS ORDERED: MULT-690 PO (09:31)
[2021-03-20] MEDS ORDERED: HYDR5TAB11 PO (09:31)
[2021-03-20] MEDS ORDERED: HYDR25TA PO (09:31)
[2021-03-20] MEDS ORDERED: IODIXANOL 320 MG/ML 100 ML VIAL. ONE ×2 (10:31→10:33)
[2021-03-20] MEDS ORDERED: LIDOCAINE 1% Multi-Dose 20 ML VIAL. ONE (10:31)
[2021-03-20] MEDS ORDERED: HEPARIN for IV BOLUS 10,000 UNIT/10 ML VIAL. IART ONE (10:45)
[2021-03-20] MEDS ORDERED: LIDOCAINE 2% Multi-Dose 20 ML VIAL. IJ ONE (10:45)
[2021-03-20] MEDS ORDERED: fentaNYL PF VIAL 100 MCG/2 ML VIAL IV ONE (10:45)
[2021-03-20] MEDS ORDERED: MIDAZOLAM HCL/PF 2 MG/2 ML VIAL. IV ONE (10:45)
[2021-03-20] MEDS ORDERED: IODIXANOL 320 MG/ML 100 ML VIAL. IART ONE (10:45)
[2021-03-20] MEDS ORDERED: VERAPAMIL 5 MG/2 ML VIAL. IART ONE (10:45)
[2021-03-20] MEDS ORDERED: NITROGLYCERIN 200 MCG/2 ML SYRINGE FOR CATH/VASC LAB. IART ONE (10:45)
[2021-03-20] MEDS ORDERED: LIDOCAINE 1% PF 2 ML VIAL. INJ ONE (10:45)
[2021-03-20] MEDS ORDERED: [UNRECOGNIZED DRUG - CODE] PO (11:25)
[2021-03-20] MEDS ORDERED: fentaNYL PF VIAL 100 MCG/2 ML VIAL ONE (11:57)
--- NOTE | 2021-03-20 13:19 | CARD ---
MR#: [id number] Date of Study: 03/20/2021 Ordering Physician: EMMY LEWIS, Referring Physician: EMMY LEWIS, Tech: RT Soha(R)() APPROVED REPORT Technologist: Beverly Rice RT(R)() Nurse: Britt Mejia RN Procedure(s) performed: FLUORO TIME: 3.3 MIN DOSE:62 Gycm2 Contrast: 55ml Mod Sedation: 40 min LHC, CORONARY ANGIOGRAPHY, RIGHT HEART CATHETERIZATION CS Clinical Frailty Scale [facility] Clinical Frailty Scale: Mildly Frail Heart Failure Heart Failure: Yes If Yes, Newly Diagnosed: No If Yes, HF Type: Diastolic If Yes, NYHA Class: Class II CASE TECHNIQUE IV conscious sedation was used throughout procedure with appropriate monitoring and was performed in the presence of a registered nurse who was an independent trained observer other than the physician p erforming the procedure. During this case, Fluoroscopy and low osmolar contrast were used for imaging . Specimen(s) Removed: N/A Estimated Blood loss: 20 cc's. PROCEDURE NARRATIVE Clinical information: 60-year-old male coming into the hospital for evaluation of dyspnea. Informed consent: Written informed consent was obtained from the patient after adequate discussion of the risks and rodrigue efits of the procedure. Procedure details: ACCESS: The right wrist was prepped and draped in usual sterile fashion. Under 1% lidocaine local anesthesia a 6 Citizen Of [place] Terumo sheath was placed in the right radial artery via the Seldinger technique. The rig ht neck was then prepped in sterile fashion. Under ultrasound guidance and 1% lidocaine local anesth esia a 5 [place] sheath was placed in the right internal jugular vein via the modified Seldinger techn ique. DIAGNOSTIC ANGIOGRAPHY: Right and left coronary arteries were engaged with a 6 [place] TIG catheter. Diagnostic angiography i n multiple views were obtained. Next, a 6 [place] pigtail catheter was placed in the left ventricle a nd a LVEDP was measured. A pullback was performed. All catheters were exchanged over J-tip guidewir e. FINDINGS: ======= Aorta: 110/80 LVEDP: 15 mmHg Right heart catheterization: RA: 9 mmHg RV 25/9 PA 25/15 Wedge 13 mmHg PA saturation 73% RA saturation 96% Fabian cardiac output 5.3 L/min Left ventriculogram: Deferred due to known normal left ventricular systolic function on stress testin g. Coronary angiography: LM: Short caliber vessel with near separate ostia of the LAD and circumflex LAD: Large caliber vessel with normal angiographic appearance D1: Small caliber vessel with normal angiographic appearance LCX: Large caliber non-dominant vessel with normal angiographic appearance OM1: Moderate caliber vessel with normal angiographic appearance RCA: Large caliber dominant vessel with normal angiographic appearance RPDA: Moderate caliber vessel with normal angiographic appearance CLOSURE: At case completion the right radial sheath was removed and a Terumo radial band was applied with 11 m L of air. The right neck sheath was removed and hemostasis was achieved with manual compression. COMPLICATIONS: No acute complications noted Conclusion 1. Normal biventricular filling pressures. 2. No evidence of pulmonary HTN 3. Normal cardiac output 4. Normal angiographic appearance of the coronary arteries Recommendations Aggressive medical therapy and further investigation for non-cardiac causes of dyspnea. Signed by : Emmy Lewis, Electronically Approved : 03/20/2021 13:18:58
--- NOTE | 2021-03-20 14:30 | NUR ---
Discharge Note: STEFF GREENBERG Discharge instructions and discharge home medications reviewed with Patient and a copy given. All questions have been answered and understanding verbalized. The following instructions and handouts were given: Moderate sedation and radial site care. Discontinued left peripheral IV, no complications and bandaid applied. Right radial site dressing changed and armboard reapplied. Patient discharged to home, with his .
== END 2021-03-20 14:46 | disposition home or self-care (01) ==
LOC: CCL 08:28
PROVIDERS: ATTEND Internal Medicine Cardiovascular Disease
DX: R06.00 Dyspnea, unspecified (principal); I25.110 Atherosclerotic heart disease of native coronary artery with unstable angina pectoris; I10 Essential (primary) hypertension; E78.00 Pure hypercholesterolemia, unspecified; J44.9 Chronic obstructive pulmonary disease, unspecified; F41.9 Anxiety disorder, unspecified; F32.9 Major depressive disorder, single episode, unspecified; G47.30 Sleep apnea, unspecified; Z79.82 Long term (current) use of aspirin; Z79.899 Other long term (current) drug therapy; Z98.890 Other specified postprocedural states; Z87.891 Personal history of nicotine dependence; Z72.89 Other problems related to lifestyle; Z88.0 Allergy status to penicillin; Z88.6 Allergy status to analgesic agent
CPT/HCPCS: 36415; 76937; 80048; 85027; 85610; 93460; 99152; 99153; C1769; C1773; C1892; C1894; J1644; J2250; J3010; J3490; Q9967

== ENCOUNTER 2022-03-31 19:20 | Emergency (ER) | payer MEDICARE, OTHER ==
[~2022-03-31] VITALS: Ht 185.4 cm; Wt 140.0 kg
[~2022-03-31 19:20] MED LIST changes: +AMLO-187 PO; +ASPI-630 PO; +B CO1TAB10 PO; +BRIN8DRO OP; +CHOL10004 PO; +CYAN500T7 PO; +DULO60CA7 PO; +FOLI0.8T5 PO; +HYDR25TA PO; +HYDR5TAB11 PO; +KETO120S4 TP; +LISI-130 PO; +LORA10TA3 PO; +MULT-690 PO; +OLOD4MIS2 IH; +PIME30CR2 TP; +POTA10TA12 PO; +PRAV40TA2 PO; +PREG150C PO; +TAMS0.4C97 PO; +TEST5GEL TD; +TIMO5DRO21 EACHEYE; +UBIQ75CA PO; +[UNRECOGNIZED DRUG - CODE] PO
[2022-03-31] MEDS ORDERED: fentaNYL PF VIAL 100 MCG/2 ML VIAL IV PRN (19:30)
--- NOTE | 2022-03-31 20:06 | PHYS DOC ---
Past Medical History Past Medical History: COPD, Depression, Glaucoma, High Cholesterol, Hyper tension, Renal Disease, Other Additional Past Medical Histor: CHRONIC PAIN Past Surgical History: Appendectomy, Lumbar Laminectomy, Other Additional Past Surgical Histo: R SHOULDER, NECK PLATE, "EYE TUBES", HERNIA Smoking Status: Former Smoker Alcohol Use: Rarely Drug Use: Methadone General Adult EDM: Chief Complaint: WEAKNESS/GENERALIZED HPI: HPI: Patient is a 61 year old male with history of COPD, depression, hypertension, high cholesterol, kidney disease, who presents to the ED today with multiple complaints. Patient states he has had right shoulder weakness as well as right lower extremity weakness, he states symptoms have been going on for 2 to 3 days. He states he has history of chronic shoulder and lower back pain issues. Patient states he knows he does not have a stroke but he still says he has dizziness for 2 to 3 days. Denies anything specifically exacerbating or relieving his symptoms. Denies any fever, coughing, congestion. Denies any chest pain. Patient denies any loss of bowel/bladder function Review of Systems: Review of Systems: Constitutional: Denies fever or chills. [] Eyes: Denies change in visual acuity. [] HENT: Denies nasal congestion or sore throat. [] Respiratory: Denies cough or shortness of breath. [] Cardiovascular: Denies chest pain or edema. [] GI: Denies abdominal pain, nausea, vomiting, bloody stools or diarrhea. [] : Denies dysuria. [] Musculoskeletal: Reports right shoulder weakness, right lower extremity weakness Integument: Denies rash. [] Neurologic: Denies headache, focal weakness or sensory changes. [] Psychiatric: Denies depression or anxiety. [] Heart Score: C/O Chest Pain: N/A Risk Factors: Risk Factors: DM, Current or recent (<one month) smoker, HTN, HLP, family history of CAD, obesity. Risk Scores: Score 0 - 3: 2.5% MACE over next 6 weeks - Discharge Home Score 4 - 6: 20.3% MACE over next 6 weeks - Admit for Clinical Observation Score 7 - 10: 72.7% MACE over next 6 weeks - Early Invasive Strategies Current Medications: Current Medications Medications (Trade) Dose Ordered Sig/Maxime Start Time Stop Time Status Last Admin Dose Admin Fentanyl Citrate (Fentanyl 2ml Vial) 50 mcg PRN Q15MIN PRN 03/31/22 19:30 04/01/22 19:29 Allergies: Allergies: Allergies Coded Allergies Type Severity Reaction Last Updated Verified Penicillins Allergy Intermediate ITCHING 11/28/19 Yes morphine Allergy Unknown ITCHING 03/20/21 Yes Physical Exam: PE: Constitutional: Well developed, well nourished, no acute distress, non-toxic appearance. [] HENT: Normocephalic, atraumatic, bilateral external ears normal, oropharynx moist, no oral exudates, nose normal. [] Eyes: PERRLA, EOMI, conjunctiva normal, no discharge. [] Neck: Normal range of motion, no tenderness, supple, no stridor. [] Cardiovascular:Heart rate regular rhythm, no murmur [] Lungs & Thorax: Bilateral breath sounds clear to auscultation [] Abdomen: Bowel sounds normal, soft, no tenderness, no masses, no pulsatile masses. [] Skin: Warm, dry, no erythema, no rash. [] Back: No tenderness, no CVA tenderness. [] Extremities: Right upper extremity, right lower extremity with no obvious deformity. 4 out of 5 strength noted on the right upper extremity, 5 out of 5 strength of the left upper extremity. Full passive range of motion to the right shoulder. Right shoulder appears to be weaker during range of motion. Adequate radial, medial, ulnar sensation to the right fingers. Plus right radial pulse. Cap refill less than 2 seconds of right fingers. Right lower extremity with no obvious deformity. Adequate strength to bilateral lower extremities. Straight leg raise was not attempted, patient comfortable sitting Neurologic: Alert and oriented X 3, normal motor function, normal sensory function, no focal deficits noted. Cranial nerves II through XII intact Psychologic: Anxious appearing patient EKG: EK interpreted by Dr. Guerrero sinus rhythm heart rate 80 no STEMI [] Radiology/Procedures: Radiology/Procedures: []PROCEDURE: CT UPPR EXTREMTY WO CONTRST RT CT right shoulder without contrast PQRS statement: CT scans at this facility use dose reduction including either automated exposure control, iterative reconstructions, and /or weight based radiation dosing via mA and kV modification when appropriate to reduce radiation dose to as low as reasonably achievable. HISTORY: Right shoulder weakness. FINDINGS: Probable prior lateral clavicle resection along the inferior cortex at the acromioclavicular joint for decompression. There is mild inferior acromial spur. No fracture. No dislocation. Cylindrical lucencies related to removed screws or suture anchors from the glenoid. Glenohumeral osteoarthritis with j oint space narrowing and mild circumferential glenoid bone spurring. The muscles surrounding the shoulder and the soft tissues are unremarkable. Multilevel cervical spine surgery with laminectomies, ACDF hardware and articular pillar screws and rods. There may be right-sided neural foraminal stenoses from uncovertebral bony spurring and facet spurring which could be severe at C3-C4 and moderate at C6-C7. IMPRESSION: 1. No acute osseous injury of the right shoulder. 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 2. Surgical changes of the cervical spine. Uncovertebral and facet arthritis with bony spurring contributing to neural foraminal stenoses as described above. Electronically signed by: Sydnie Brandon MD (03/31/2022 8:51 PM) [facility] DI[facility] and SIGNED BY: SYDNIE BRANDON MD DATE: 03/31/222045 PROCEDURE: CT LUMBAR SPINE WO CONTRAST Exam: CT of lumbar spine without contrast INDICATION: Right leg pain, Back pain TECHNIQUE: Sequential axial images through the lumbar spine obtained without IV contrast. Sagittal and coronal reformatted images were reconstructed from the axial data and reviewed. Exposure: One or more of the following in the visualized dose reduction techniques were utilized for this examination: 1. Automated exposure control 2. Adjustment of the MA and/or KV according to patient size 3. Use of iterative of reconstructive technique Comparisons: None FINDINGS: Vertebral body heights and alignment are well-maintained. Fracture to the lumbar spine is not identified. There is degenerative disc disease at L5-S1 without significant neural foraminal or spinal canal stenosis. Visualized paraspinal soft tissues are unremarkable. IMPRESSION: Negative CT lumbar spine for acute traumatic injury Electronically signed by: Eunice Manzano MD (03/31/2022 8:50 PM) [facility] DI[facility] and SIGNED BY: EUNICE MANZANO MD DATE: 03/31/222042 PROCEDURE: CT HEAD AND CERVICAL SPINE WO Exam: CT head and cervical spine INDICATION: Right-sided weakness TECHNIQUE: Sequential axial images through the head and cervical spine were obtained without the administration of IV contrast. Exposure: One or more of the following in the visualized dose reduction techniques were utilized for this examination: 1. Automated exposure control 2. Adjustment of the MA and/or KV according to patient size 3. Use of iterative of reconstructive technique Comparisons: None FINDINGS: Head: No focal parenchymal lesion or hemorrhage is identified. There is no midline shift or sulcal effacement. No acute vascular territory infarction is identified. Barnes-white distinction is preserved. The ventricular system is within normal limits without compression hydrocephalus. The basal cisterns are well maintained. The visualized portions of the paranasal sinuses and mastoid air cells are well-pneumatized. No acute fractures. Cervical spine: Cervical fusion hardware noted from C3 through C7 with laminectomy changes. Vertebral body heights and alignment are well-maintained. Fracture to the cervical spine is not identified. No significant spondylotic change in cervical spine. Visualized paraspinal soft tissues are unremarkable. IMPRESSION: 1. No acute intracranial abnormality. 2. Negative CT C-spine for acute traumatic injury. Electronically signed by: Eunice Manzano MD (03/31/2022 8:43 PM) [facility] DI[facility] and SIGNED BY: EUNICE MANZANO MD DATE: 03/31/222039 PROCEDURE: PORTABLE CHEST 1V Exam: Chest one view INDICATION: Right-sided weakness, pain TECHNIQUE: Frontal view of the chest Comparisons: 11/28/2019 FINDINGS: The cardiomediastinal silhouette and pulmonary vessels are within normal limits. The lung and pleural spaces are clear. IMPRESSION: No acute cardiopulmonary process. Electronically signed by: Eunice Manzano MD (03/31/2022 8:08 PM) [facility] DI[facility] and SIGNED BY: EUNICE MANZANO MD DATE: 03/31/222004 Course & Med Decision Making: Course & Med Decision Making Pertinent Labs and Imaging studies reviewed. (See chart for details) This is a 61-year-old male patient presented to the ED today with multiple complaints. Patient is complaining of weakness to the right shoulder and right lower extremity for 2 to 3 days. Also complaining of dizziness, he appears an xious. He states the weakness to the right shoulder and right lower extremity is not really new but in the last 2 to 3 days it feels worse. Reports history of chronic back and shoulder problems. Denies any injuries. Denies any cauda equina syndrome symptoms. Reports dizziness and appears anxious. CT of the head, cervical spine, right shoulder, lumbar spine are negative for a ny acute findings. EKG, lab work, negative for any acute findings. Patient is requesting to go home. He states he has a neurosurgeon he sees at [facility]. Provided him an orthopedic doctor for follow-up as well. Discharge to home. Ashleigh Disclaimer: Ashleigh Disclaimer: This electronic medical record was generated, in whole or in part, using a voice recognition dictation system. Departure Departure Impression: Primary Impression: Right shoulder pain Qualified Codes: M25.511 - Pain in right shoulder Additional Impressions: Sciatica of right side Dizziness Disposition: HOME / SELF CARE / HOMELESS Condition: STABLE Referrals: RITU SANDHU MD (PCP) follow up next week REMEDIOS MCCAULEY MD follow up in one week Patient Instructions: Sciatica, Shoulder Pain, [id number] Additional Instructions: You were evaluated in the emergency room. Your CT of the head, neck, right shoulder and lumbar spine are negative for any acute findings. We highly recommend you follow-up with your primary care doctor in the next 1 to 2 weeks. Also follow-up with your neurosurgeon as well as the provided orthopedic doctor in the next 1 week. REINIER JEREZ CERTIFIED LEGAL SECRETARY SPECIALIST March 31, 2022 20:06
--- NOTE | 2022-03-31 20:10 | RAD ---
Exam: Chest one view INDICATION: Right-sided weakness, pain TECHNIQUE: Frontal view of the chest Comparisons: 11/28/2019 FINDINGS: The cardiomediastinal silhouette and pulmonary vessels are within normal limits. The lung and pleural spaces are clear. IMPRESSION: No acute cardiopulmonary process. Electronically signed by: Eunice Velasquez MD (03/31/2022 8:08 PM) [facility]
[2022-03-31 20:28] LABS: BASO # 0.1 x10^3/uL (0.0-0.2); BASO % 1 % (0-3); EOS # 0.2 x10^3/uL (0.0-0.7); EOS % 2 % (0-3); HEMATOCRIT 38.7 % (39.0-53.0); HEMOGLOBIN 13.2 g/dL (13.0-17.5); LYMPH # 1.2 x10^3/uL (1.0-4.8); LYMPH % 17 % (24-48); MEAN CORPUSCULAR HEMOGLOBIN 30 pg (25-35); MEAN CORPUSCULAR HGB CONC 34 g/dL (31-37); MEAN CORPUSCULAR VOLUME 87 fL (79-100); MONO # 0.6 x10^3/uL (0.0-1.1); MONO % 8 % (0-9); NEUT # 5.2 x10^3/uL (1.8-7.7); NEUT % 72 % (31-73); PLATELET COUNT 270 x10^3/uL (140-400); RED BLOOD COUNT 4.45 x10^6/uL (4.30-5.70); RED CELL DISTRIBUTION WIDTH 15.3 % (11.5-14.5); WHITE BLOOD COUNT 7.2 x10^3/uL (4.0-11.0)
[2022-03-31 20:38] LABS: PROTHROMBIN TIME PATIENT 12.6 SEC (11.7-14.0)
[2022-03-31 20:41] LABS: CALCIUM 9.2 mg/dL (8.5-10.1); CREATININE 1.5 mg/dL (0.7-1.3); GFR 47.3; POTASSIUM 4.5 mmol/L (3.5-5.1)
--- NOTE | 2022-03-31 20:46 | RAD ---
Exam: CT head and cervical spine INDICATION: Right-sided weakness TECHNIQUE: Sequential axial images through the head and cervical spine were obtained without the admi nistration of IV contrast. Exposure: One or more of the following in the visualized dose reduction techniques were utilized for this examination: 1. Automated exposure control 2. Adjustment of the MA and/or KV according to patient size 3. Use of iterative of reconstructive technique Comparisons: None FINDINGS: Head: No focal parenchymal lesion or hemorrhage is identified. There is no midline shift or sulcal effaceme nt. No acute vascular territory infarction is identified. Barnes-white distinction is preserved. The ventricular system is within normal limits without compression hydrocephalus. The basal cisterns are well maintained. The visualized portions of the paranasal sinuses and mastoid air cells are well-pneumatized. No acute fractures. Cervical spine: Cervical fusion hardware noted from C3 through C7 with laminectomy changes. Vertebral body heights an d alignment are well-maintained. Fracture to the cervical spine is not identified. No significant spondylotic change in cervical spine. Visualized paraspinal soft tissues are unremarkable. IMPRESSION: 1. No acute intracranial abnormality. 2. Negative CT C-spine for acute traumatic injury. Electronically signed by: Eunice Velasquez MD (03/31/2022 8:43 PM) [facility]
[2022-03-31 20:47] LABS: ALBUMIN 3.7 g/dL (3.4-5.0); ALBUMIN/GLOBULIN RATIO 1.1 (1.0-1.7); MAGNESIUM 2.2 mg/dL (1.8-2.4); TOTAL BILIRUBIN 0.2 mg/dL (0.2-1.0); TOTAL PROTEIN 7.2 g/dL (6.4-8.2)
--- NOTE | 2022-03-31 20:52 | RAD ---
Exam: CT of lumbar spine without contrast INDICATION: Right leg pain, Back pain TECHNIQUE: Sequential axial images through the lumbar spine obtained without IV contrast. Sagittal an d coronal reformatted images were reconstructed from the axial data and reviewed. Exposure: One or more of the following in the visualized dose reduction techniques were utilized for this examination: 1. Automated exposure control 2. Adjustment of the MA and/or KV according to patient size 3. Use of iterative of reconstructive technique Comparisons: None FINDINGS: Vertebral body heights and alignment are well-maintained. Fracture to the lumbar spine is not identified. There is degenerative disc disease at L5-S1 without significant neural foraminal or spinal canal sten osis. Visualized paraspinal soft tissues are unremarkable. IMPRESSION: Negative CT lumbar spine for acute traumatic injury Electronically signed by: Eunice Velasquez MD (03/31/2022 8:50 PM) [facility]
--- NOTE | 2022-03-31 20:54 | RAD ---
CT right shoulder without contrast PQRS statement: CT scans at this facility use dose reduction including either automated exposure cont rol, iterative reconstructions, and /or weight based radiation dosing via mA and kV modification when appropriate to reduce radiation dose to as low as reasonably achievable. HISTORY: Right shoulder weakness. FINDINGS: Probable prior lateral clavicle resection along the inferior cortex at the acromioclavicula r joint for decompression. There is mild inferior acromial spur. No fracture. No dislocation. Cylindr ical lucencies related to removed screws or suture anchors from the glenoid. Glenohumeral osteoarthri tis with joint space narrowing and mild circumferential glenoid bone spurring. The muscles surroundin g the shoulder and the soft tissues are unremarkable. Multilevel cervical spine surgery with laminectomies, ACDF hardware and articular pillar screws and r ods. There may be right-sided neural foraminal stenoses from uncovertebral bony spurring and facet sp urring which could be severe at C3-C4 and moderate at C6-C7. IMPRESSION: 1. No acute osseous injury of the right shoulder. 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 2. Surgical changes of the cervical spine. Uncovertebral and facet arthritis with bony spurring contr ibuting to neural foraminal stenoses as described above. Electronically signed by: Ramon Pagan MD (03/31/2022 8:51 PM) [facility]
[2022-03-31 22:00] VITALS: BP 175/79
[2022-03-31] MEDS ORDERED: MORPHINE SULFATE 2 MG/ML INJ. IVP ONE (22:00)
[2022-03-31] MEDS ORDERED: diphenhydrAMINE 50 MG/ML VIAL IVP ONE (22:00)
--- NOTE | 2022-04-01 07:19 | EKG ---
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
--- NOTE | 2022-04-01 07:19 | EKG ---
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
== END 2022-03-31 22:31 | disposition home or self-care (01) ==
LOC: ER 19:20
DX: M25.511 Pain in right shoulder (principal); M54.30 Sciatica, unspecified side; R42 Dizziness and giddiness; J44.9 Chronic obstructive pulmonary disease, unspecified; E78.00 Pure hypercholesterolemia, unspecified; I10 Essential (primary) hypertension; G89.29 Other chronic pain; Z88.0 Allergy status to penicillin; Z88.5 Allergy status to narcotic agent
CPT/HCPCS: 36415; 70450; 71045; 72125; 72131; 73200; 80053; 83735; 83880; 84443; 84484; 85025; 85610; 85730; 93005; 96374; 96375; 99285; J1200; J2270; J3010